=== PATIENT | female | born 1940 | race Caucasian/White ===

== ENCOUNTER 2024-06-22 05:36 | Emergency (ER) | payer MEDICARE, SELFPAY ==
[2024-06-22] VITALS (22 sets, daily range): BP systolic 110–178; BP diastolic 58–102; PULSE 62–93; RESP 10–23; TEMP 36.7; O2SAT 94–100
--- NOTE | ~2024-06-22 | XR_ITS ---
Portable chest x-ray Comparison: None Clinical History: Chest pain Findings: Lungs are clear, without focal consolidation or pleural effusion. Cardiomediastinal silho uette is stable. There is mild dextroscoliosis of the thoracic spine.. Impression: Clear lungs. Reviewed, dictated and finalized at [facility]. 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
--- NOTE | 2024-06-22 05:40 | ECG_ITS ---
Test Date: 2024-06-22 05:41:26 Measurements Intervals [place] Rate: 74 P: 54 MS: 233 QRS: -59 QRSD: 154 T: 87 QT: 425 QTc: 474 Interpretive Statements SINUS RHYTHM WITH FIRST DEGREE AV BLOCK WITH OCCASIONAL VENTRICULAR PREMATURE COMPLEXES LEFT AXIS DEVIATION LEFT BUNDLE BRANCH BLOCK BASELINE ARTIFACT- I, II, III, AVR, AVL, AVF, V2, V6 ABNORMAL ECG No previous ECG available for comparison Electronically Signed On 06-22-2024 07:04:59 DREDGE OPERATOR by Farhan Rich D.O.
[2024-06-22] MEDS: NITROGLYCERIN SL 0.4 MG TABLET SUBLINGUAL (05:46)
[2024-06-22] MEDS: MAG HYDROX/AL HYDROX/SIMETH 30 ML UDC PO (06:08)
[2024-06-22 06:15] LABS: Fractional Inspired Oxygen 21 %; HCO3 VBG 29.8 mEq/l (24.0-30.0); PCO2 VBG 53.9 mmHg (42.0-48.0); pH VBG 7.361 (7.300-7.400)
[2024-06-22 06:17] LABS: Device ROOM AIR; PO2 VBG < 27.0 mmHg (35.0-45.0)
[2024-06-22 06:18] LABS: Basophils Percent Auto 0.2 % (0.2-1.2); Eosinophils Absolute Auto 0.1 K/mm3 (0-0.3); Eosinophils Percent Auto 0.6 % (0-4.4); Hematocrit 44.4 % (37.0-47.0); Hemoglobin 14.8 g/dL (12.0-15.0); Immature Granulocyte Absolute 0.04 K/mm3 (0.00-0.031); Immature Granulocyte Percent A 0.4 % (0-0.5); Lymphocytes Absolute Auto 1.34 K/mm3 (0.9-3.2); Lymphocytes Percent Auto 12.3 % (18.3-44.2); Mean Corpuscular HGB Conc 33.3 g/dl (32-36); Mean Corpuscular Volume 96.1 fl (80-100); Mean Platelet Volume 9.9 fl (7.4-10.4); Monocytes Absolute Auto 0.8 K/mm3 (0.1-0.6); Monocytes Percent Auto 7.4 % (2.6-8.5); Neutrophils Absolute Auto 8.6 K/mm3 (1.3-6.7); Neutrophils Percent Auto 79.1 % (45.5-73.1); Platelet Count Result 235 k/mm3 (150-375); Red Blood Count 4.62 M/mm3 (4.2-5.4); Red Cell Distribution Width 13.1 % (11.5-14.5); White Blood Count 10.9 K/mm3 (4.5-10.0)
[2024-06-22 06:26] LABS: Alanine Aminotransferase 22 U/L (6-35); Albumin Level 4.7 g/dL (3.5-5.1); Alkaline Phosphatase 79 U/L (38-126); Anion Gap 10 mmol/L (4-12); Aspartate Amino Transferase 31 U/L (14-36); Bilirubin,Total 0.8 mg/dL (0.2-1.3); Blood Urea Nitrogen 25 mg/dL (7-17); Carbon Dioxide 30 mmol/L (22-30); Chloride 92 mmol/L (98-107); Estimated CRCL calculation 37 ml/min; Estimated Glomerular Filt Rate 57; Glucose 131 mg/dL (65-110); Lipase 160 U/L (23-300); Potassium 3.9 mmol/L (3.4-5.0); Sodium 132 mmol/L (137-145)
[2024-06-22 06:32] LABS: INR 0.9; Prothrombin Time 12.5 Seconds (11.1-14.7)
[2024-06-22 06:33] LABS: Partial Thromboplastin Time 26.5 Seconds (22.3-36.8)
[2024-06-22 06:37] LABS: Troponin I < 0.012 ng/mL (0.000-0.034)
[2024-06-22 06:38] LABS: NT Pro B Type Natriuretic Pept 375 pg/mL (19.9-100)
--- NOTE | 2024-06-22 06:40 | ED.CHESTPAIN ---
HPI - Chest Pain General Chief Complaint: Chest Pain <Ozzie Rockwell MD - Last Filed: 06/22/24 07:00> Stated Complaint: STEMI <Ozzie Rockwell MD - Last Filed: 06/22/24 07:00> Time Seen by Provider: 06/22/24 05:39 <Ozzie Rockwell MD - Last Filed: 06/22/24 07:00> History of Present Illness HPI narrative: This is an 83-year-old female presenting for chest pain. She has activated by EMS as a STEMI in the field. Patient states that at 3:00 a.m. she developed a pain in the lower chest/epigastric area. It is nonradiating, moderate intensity and constant. She has never had pain like this before there are no exacerbating alleviating factors. Is not associated with exertion, diaphoresis or vomiting. No history of [place]. no history of GERD. Patient has history of asthma but does not relate this chest pain to her asthma. <Ozzie Rockwell MD - Last Filed: 06/22/24 07:00> Related Data Allergies/Adverse Reactions: Allergies Allergy/AdvReac Type Severity Reaction Status Date / Time Cephalosporins Allergy Hives Verified 06/22/24 05:48 Penicillins Allergy Hives Verified 06/22/24 05:48 strawberry Allergy Hives Verified 06/22/24 05:48 <Ozzie Rockwell MD - Last Filed: 06/22/24 07:00> [facility] Past Medical History Medical History: Medical History Asthma HTN (hypertension) <Ozzie Rockwell MD - Last Filed: 06/22/24 07:00> Exam Narrative: APPEARANCE: No apparent distress. Head: atraumatic. EYES: EOMI, NOSE: Atraumatic NECK: Trachea midline RESPIRATORY: No increased rate of breathing, decreased lung sounds but clear CARDIOVASCULAR: RRR, no peripheral edema, pulses in all 4 extremities ABDOMINAL: Non-distended soft nontender no guarding rebound MUSCULOSKELETAl: No obvious deformities NEURO: Alert. Moving 4/4 extremities SKIN:: Warm, dry. Normal color PSYCHIATRIC: Normal affect <Ozzie Rockwell MD - Last Filed: 06/22/24 07:00> Course Course Emergency Course: 0956: Patient resting comfortably. No chest pain. EKG with left bundle x2. COVID screen negative. Troponin negative x2. X-ray unremarkable. Appropriate for discharge home. <Brian Roth MD - Last Filed: 06/22/24 10:50> Vital Signs Vital signs: Vital Signs Temperature 98.1 F 06/22/24 05:33 Pulse Rate 79 06/22/24 05:33 Respiratory Rate 17 06/22/24 05:33 Pulse Oximetry 99 06/22/24 05:33 Oxygen Delivery Room Air 06/22/24 05:33 Temperature 98.0 F 06/22/24 06:46 Pulse Rate 67 06/22/24 08:45 Respiratory Rate 18 06/22/24 08:45 Blood Pressure 122/64 06/22/24 08:31 Pulse Oximetry 99 06/22/24 08:45 Oxygen Delivery Room Air 06/22/24 05:40 <Ozzie Rockwell MD - Last Filed: 06/22/24 07:00> Vital Signs Temperature 98.1 F 06/22/24 05:33 Pulse Rate 79 06/22/24 05:33 Respiratory Rate 17 06/22/24 05:33 Pulse Oximetry 99 06/22/24 05:33 Oxygen Delivery Room Air 06/22/24 05:33 Temperature 98.0 F 06/22/24 06:46 Pulse Rate 67 06/22/24 08:45 Respiratory Rate 18 06/22/24 08:45 Blood Pressure 122/64 06/22/24 08:31 Pulse Oximetry 99 06/22/24 08:45 Oxygen Delivery Room Air 06/22/24 05:40 <Brian Roth MD - Last Filed: 06/22/24 10:50> MDM - Chest Pain MDM Narrative Medical decision making narrative: -Course: 83-year-old female presenting as a STEMI activation from the field. EKG showed left bundle-branch block but no STEMI criteria. Chest pain workup has been ordered. Patient received nitro in the field without any relief. She received Maalox in the ED and symptoms improved. She is currently pain-free. Patient signed out to the oncoming physician pending completion of her workup. <Ozzie Rockwell MD - Last Filed: 06/22/24 07:00> Lab Data Result diagrams: 06/22/24 06:06 06/22/24 06:06 <Ozzie Rockwell MD - Last Filed: 06/22/24 07:00> Labs: Lab Results 06/22/24 06/22/24 06/22/24 Range/Units 06:06 06:06 08:33 WBC 10.9 H (4.5-10.0) K/mm3 RBC 4.62 (4.2-5.4) M/mm3 Hgb 14.8 (12.0-15.0) g/dL Hct 44.4 (37.0-47.0) % MCV 96.1 (80-100) fl MCH 32.0 (26-34) pg MCHC 33.3 (32-36) g/dl RDW 13.1 (11.5-14.5) % Plt Count 235 (150-375) k/mm3 MPV 9.9 (7.4-10.4) fl Immature Gran % (Auto) 0.4 (0-0.5) % Neut % (Auto) 79.1 H (45.5-73.1) % Lymph % (Auto) 12.3 L (18.3-44.2) % [place] % (Auto) 7.4 (2.6-8.5) % Eos % (Auto) 0.6 (0-4.4) % Baso % (Auto) 0.2 (0.2-1.2) % Lymph # (Auto) 1.34 (0.9-3.2) K/mm3 [place] # (Auto) 0.8 H (0.1-0.6) K/mm3 Eos # (Auto) 0.1 (0-0.3) K/mm3 Baso # (Auto) 0.0 (0.0-0.1) K/mm3 Abs Immat Gran (auto) 0.04 H (0.00-0.031) K/mm3 Absolute Neuts (auto) 8.6 H (1.3-6.7) K/mm3 Absolute Nucleated RBC 0.000 (0.0-0.012) K/mm3 Nucleated RBC % 0.0 (0.0-0.2) % PT 12.5 (11.1-14.7) Seconds INR 0.9 APTT 26.5 (22.3-36.8) Seconds D-Dimer 0.38 Cancelled (<0.48) ug/mL Sodium 132 L (137-145) mmol/L Potassium 3.9 (3.4-5.0) mmol/L Chloride 92 L (98-107) mmol/L Carbon Dioxide 30 (22-30) mmol/L Anion Gap 10 (4-12) mmol/L BUN 25 H (7-17) mg/dL Creatinine 0.93 (0.7-1.0) mg/dL Estim Creat Clear Calc 37 ml/min Estimated GFR 57 L (59 - ) Glucose 131 H (65-110) mg/dL Calcium 10.0 (8.4-10.2) mg/dL Total Bilirubin 0.8 (0.2-1.3) mg/dL AST 31 (14-36) U/L ALT 22 (6-35) U/L Alkaline Phosphatase 79 (38-126) U/L Troponin I < 0.012 < 0.012 (0.000-0.034) ng/mL NT-Pro-B Natriuret Pep 375 H (19.9-100) pg/mL Total Protein 8.0 (6.3-8.2) g/dL Albumin 4.7 (3.5-5.1) g/dL Lipase 160 (23-300) U/L Influenza A (RT-PCR) Negative (Negative) Influenza B (RT-PCR) Negative (Negative) RSV (RT-PCR) Negative (Negative) SARS-CoV-2 RNA (RT-PCR) Negative (Negative) <Ozzie Rockwell MD - Last Filed: 06/22/24 07:00> Lab Results 06/22/24 06/22/24 06/22/24 Range/Units 06:06 06:06 08:33 WBC 10.9 H (4.5-10.0) K/mm3 RBC 4.62 (4.2-5.4) M/mm3 Hgb 14.8 (12.0-15.0) g/dL Hct 44.4 (37.0-47.0) % MCV 96.1 (80-100) fl MCH 32.0 (26-34) pg MCHC 33.3 (32-36) g/dl RDW 13.1 (11.5-14.5) % Plt Count 235 (150-375) k/mm3 MPV 9.9 (7.4-10.4) fl Immature Gran % (Auto) 0.4 (0-0.5) % Neut % (Auto) 79.1 H (45.5-73.1) % Lymph % (Auto) 12.3 L (18.3-44.2) % [place] % (Auto) 7.4 (2.6-8.5) % Eos % (Auto) 0.6 (0-4.4) % Baso % (Auto) 0.2 (0.2-1.2) % Lymph # (Auto) 1.34 (0.9-3.2) K/mm3 [place] # (Auto) 0.8 H (0.1-0.6) K/mm3 Eos # (Auto) 0.1 (0-0.3) K/mm3 Baso # (Auto) 0.0 (0.0-0.1) K/mm3 Abs Immat Gran (auto) 0.04 H (0.00-0.031) K/mm3 Absolute Neuts (auto) 8.6 H (1.3-6.7) K/mm3 Absolute Nucleated RBC 0.000 (0.0-0.012) K/mm3 Nucleated RBC % 0.0 (0.0-0.2) % PT 12.5 (11.1-14.7) Seconds INR 0.9 APTT 26.5 (22.3-36.8) Seconds D-Dimer 0.38 Cancelled (<0.48) ug/mL Sodium 132 L (137-145) mmol/L Potassium 3.9 (3.4-5.0) mmol/L Chloride 92 L (98-107) mmol/L Carbon Dioxide 30 (22-30) mmol/L Anion Gap 10 (4-12) mmol/L BUN 25 H (7-17) mg/dL Creatinine 0.93 (0.7-1.0) mg/dL Estim Creat Clear Calc 37 ml/min Estimated GFR 57 L (59 - ) Glucose 131 H (65-110) mg/dL Calcium 10.0 (8.4-10.2) mg/dL Total Bilirubin 0.8 (0.2-1.3) mg/dL AST 31 (14-36) U/L ALT 22 (6-35) U/L Alkaline Phosphatase 79 (38-126) U/L Troponin I < 0.012 < 0.012 (0.000-0.034) ng/mL NT-Pro-B Natriuret Pep 375 H (19.9-100) pg/mL Total Protein 8.0 (6.3-8.2) g/dL Albumin 4.7 (3.5-5.1) g/dL Lipase 160 (23-300) U/L Influenza A (RT-PCR) Negative (Negative) Influenza B (RT-PCR) Negative (Negative) RSV (RT-PCR) Negative (Negative) SARS-CoV-2 RNA (RT-PCR) Negative (Negative) <Brian Roth MD - Last Filed: 06/22/24 10:50> ABG Data ABG results: 06/22/24 06:06 VBG pH 7.361 VBG pCO2 53.9 H VBG pO2 < 27.0 L VBG HCO3 29.8 O2 Delivery Device Room air O2 Liters/Min Not Reportable FiO2 21 <Ozzie Rockwell MD - Last Filed: 06/22/24 07:00> 06/22/24 06:06 VBG pH 7.361 VBG pCO2 53.9 H VBG pO2 < 27.0 L VBG HCO3 29.8 O2 Delivery Device Room air O2 Liters/Min Not Reportable FiO2 21 <Brian Roth MD - Last Filed: 06/22/24 10:50> Imaging Data Radiologist's impression: ITS Impressions Chest X-Ray 06/22/24 06:24 Impression: Clear lungs. <Brian Roth MD - Last Filed: 06/22/24 10:50> ECG Data EKG #1: ECG completion date: 06/22/24 <Brian Roth MD - Last Filed: 06/22/24 10:50> ECG completion time: 09:56 <Brian Roth MD - Last Filed: 06/22/24 10:50> EKG Interpretation: normal rate (68), sinus rhythm, widened QRS, LBBB, normal QT and left axis <Brian Roth MD - Last Filed: 06/22/24 10:50> Discharge Plan Discharge Clinical Impression: Atypical chest pain <Ozzie Rockwell MD - Last Filed: 06/22/24 07:00> Patient Disposition: Home, Self-Care <Ozzie Rockwell MD - Last Filed: 06/22/24 07:00> Condition: Stable <Ozzie Rockwell MD - Last Filed: 06/22/24 07:00> Instructions: Chest Pain (ED) <Ozzie Rockwell MD - Last Filed: 06/22/24 07:00> Additional Instructions: Please return to the emergency department if you develop severe and persistent chest pain, difficulty breathing, dizziness, leg swelling or if you are coughing up blood as these can be signs of a medical emergency. Please call your doctor for a follow up appointment to determine the need for further testing. <Ozzie Rockwell MD - Last Filed: 06/22/24 07:00> Patient Language: Monegasque <Ozzie Rockwell MD - Last Filed: 06/22/24 07:00> Follow-up/Referrals: Reji,Luiz Baez MD [Non-Staff] - <Ozzie Rockwell MD - Last Filed: 06/22/24 07:00>
[2024-06-22 06:52] LABS: Influenza A QL RT-PCR Negative (Negative); Influenza B QL RT-PCR Negative (Negative); RSV RNA, RT-PCR Negative (Negative); SARS-CoV-2 RNA PCR Negative (Negative)
--- NOTE | 2024-06-22 08:19 | PC.NURSE ---
Pt resting denies any c/o chest/epigastric pain at this time. Resp reg, satellite project site monitor displays first degree heart block with BBB.
[2024-06-22 08:35] LABS: D Dimer 0.38 ug/mL (<0.48)
--- NOTE | 2024-06-22 08:39 | ECG_ITS ---
Test Date: 2024-06-22 08:43:45 Measurements Intervals [place] Rate: 68 P: 30 [place]: 238 QRS: -55 QRSD: 143 T: 71 QT: 432 QTc: 461 Interpretive Statements SINUS RHYTHM WITH FIRST DEGREE AV BLOCK LEFT AXIS DEVIATION LEFT BUNDLE BRANCH BLOCK ABNORMAL ECG Compared to ECG 06/22/2024 05:41:26 NO SIGNIFICANT CHANGE Electronically Signed On 06-22-2024 09:35:50 ACCOUNTS PAYABLES CLERK by Farhan Rich D.O.
[2024-06-22 09:01] LABS: Troponin I < 0.012 ng/mL (0.000-0.034)
--- OUTSIDE RECORDS SUMMARY | 2024-06-22 11:06 | XMS_ITS | Referral Summary ---
Author Organization [facility] Address [address] [facility] [place] [address] Care Team Providers Care Sweat Band Sewer Name Role Phone Elieser Patel MD Primary Care Provider Encounters Date Type Department Care Team Description 06/16/2024 Telephone [facility] Cardiology [facility] 8th [place] [address] [place] [address] Karmen Stovall MD 06/12/2024 Telephone [facility] [id number] [place] [address] Elieser Patel MD Test Results 06/12/2024 Orders Only [facility] [id number] [place] [address] Elieser Patel MD 06/10/2024 1:30 PM CLIENT ARCHITECT Office Visit [facility] [address] [place] [address] Elieser Patel MD Dizzy spells (Primary Dx); Hypertension, essential; Neck pain; Vitamin D deficiency; Hyperlipidemia, unspecified hyperlipidemia type; Frequent UTI 04/08/2024 Telephone [facility] Neurology [address] [place] [phone] Edgar Monroy MD 04/06/2024 Telephone [facility] Cardiology [address] [facility] 8th [place] [address] [place] [id number] Karmen Stovall MD from Last 3 Months Allergies Active Allergy Reactions Criticality Noted Date Comments Cephalosporins Hives Medium 01/21/2009 Cefadroxil Hives Medium 02/05/2012 Penicillins Hives Medium 01/21/2009 Candler Hives Medium 09/06/2023 Medications calcium carbonate-vitamin D3 1,500 mg (600mg elemental) -800 unit per tablet daily Active glucosamine-chond roitin (glucosamine-odalys droit-vit C-Mn) 500-400 mg capsule daily. Active ipratropium-albut nicholas (DUO-NEB) 0.5-2.5 mg/3 mL nebulizer solutionIndicatio ns:Chronic Obstructive Pulmonary Disease with Bronchospasms PRN 11 8 Active montelukast (SINGULAIR) 10 mg tablet Take 1 tablet (10 mg total) by mouth daily 3 8 Active SPIRIVA RESPIMAT 1.25 mcg/actuation mist INHALE 2 PUFFS BY MOUTH EVERY DAY 6 8 Active cholecalciferol (VITAMIN D-3) 1,000 unit tablet 2 tablets (2,000 Units total) daily Active albuterol HFA (PROVENTIL HFA,VENTOLIN HFA,PROAIR HFA) 90 mcg/actuation inhaler as needed. Active azelastine-flutic asone 137-50 mcg/spray spray,non-aerosol Dymista 137 mcg-50 mcg/spray nasal spray QD Active melatonin tablet 1 tablet (3 mg total) Active aspirin 81 mg enteric coated tablet Take 1 tablet (81 mg total) by mouth daily Active Wixela Inhub 100-50 mcg/dose diskus inhaler INHALE 2 PUFFS EVERY DAY BY INHALATION ROUTE FOR 90 DAYS. 3 Active metoprolol tartrate (LOPRESSOR) 50 mg immediate release tablet TAKE 1 & 1/2 TABLETS BY MOUTH TWICE A DAY 270 tablet 3 4 Active losartan (COZAAR) 50 mg tablet TAKE 1 TABLET BY MOUTH EVERY DAY 90 tablet 2 4 Active clindamycin (CLEOCIN) 150 mg capsule Take 1 capsule (150 mg total) by mouth every 6 (six) hours 4 Active guaiFENesin ER (Mucinex) 600 mg 12 hr tablet Take 1 tablet every 12 hours by oral route. 4 Active Spiriva Respimat 2.5 mcg/actuation inhaler INHALE 2 PUFFS INTO THE LUNGS EVERY DAY 4 Active hydroCHLOROthiazi de (HYDRODIURIL) 25 mg tablet TAKE 1 TABLET BY MOUTH EVERY DAY 90 tablet 3 4 Active Active Problems Problem Noted Date Diagnosed Date Neck pain 06/10/2024 Assessment & Plan (06/10/2024 1:48 PM CLIENT ARCHITECT): PT. AV block, 1st degree 09/06/2023 Near syncope 09/06/2023 Dizzy spells 08/08/2023 Assessment & Plan (06/10/2024 1:48 PM CLIENT ARCHITECT): Neurologic and cardiologic workups unremarkable. She feels well. Has follow up with Dr. Wilman davila. Assessment & Plan (01/09/2024 1:01 PM CDT): Unclear etiology. Cardiac workup has thus far been unremarkable. Will purse neurologic work[facility] and neurology referral. Urinary incontinence 06/28/2022 Assessment & Plan (01/09/2024 1:01 PM CDT): Refer to urogynecology (used to see Dr. Mckeon). Assessment & Plan (03/07/2023 12:41 PM CDT): Seeing urogynecology. Doing PT. No UTI symptoms today. Assessment & Plan (10/31/2022 11:47 AM CDT): Sees Dr. Mckeon. Hyponatremia 02/13/2022 Assessment & Plan (03/07/2023 12:41 PM CDT): Probably combination of excess free water intake and SIADH from known lung disease (bronchiectasis). Check urine osmolality. Limit free water consumption and replace with Crystal Light or Gatorade Zero. Assessment & Plan (02/13/2022 12:53 PM CDT): BMP today. Medicare annual wellness visit, subsequent 10/11 Assessment & Plan (10/11/2021 9:22 PM CDT): Continue healthy lifestyle. Cancer screening UTD. Recommended Prevnar and 4th COVID shot. APC (atrial premature contractions) 10/11/2021 Assessment & Plan (08/08/2023 12:33 PM CDT): Suspect that this is the etiology of her periodic spells. TIA considered less likely. Refer to cardiology for further evaluation/management. Continue metoprolol. We will also obtain carotid dopplers to rule out cerebrovascular disease. We reviewed her stress echo from 2021 which was normal. Assessment & Plan (03/07/2023 12:40 PM CDT): Well-controlled on metoprolol 75 mg BID. Assessment & Plan (10/31/2022 11:47 AM CDT): Doing well on metoprolol 75 mg BID. Assessment & Plan (06/28/2022 12:41 PM CLIENT ARCHITECT): Increase metoprolol to 75 mg BID. Had negative stress test within last year, so low likelihood of having coronary ischemia. Assessment & Plan (02/13/2022 12:12 PM CDT): Recommend increasing metoprolol to 75 mg BID. Assessment & Plan (10/11/2021 9:22 PM CDT): Holter. Frequent falls 10/11/2021 Assessment & Plan (10/11/2021 9:22 PM CDT): PT referral. Sebaceous cyst 06/13/2021 Assessment & Plan (06/13/2021 12:24 PM CLIENT ARCHITECT): She will get an I&D at urgent care. Hyperlipidemia 06/30/2020 Assessment & Plan (06/28/2022 12:39 PM CLIENT ARCHITECT): LDL at goal without need for statin. Assessment & Plan (02/13/2022 12:10 PM CDT): At goal on current therapy. Assessment & Plan (10/11/2021 9:20 PM CDT): LDL in good range without need for statin. Assessment & Plan (06/13/2021 12:23 PM CLIENT ARCHITECT): LDL at goal without need for statin at this time. Assessment & Plan (02/02/2021 5:32 PM CDT): At goal on current therapy. ASCVD (arteriosclerotic cardiovascular disease) 06/30/2020 Osteoarthritis 06/30/2020 Frequent UTI 06/30/2020 Assessment & Plan (06/10/2024 2:33 PM CLIENT ARCHITECT): Continue pelvic floor PT. Allergic rhinitis 11/26/2017 Moderate persistent asthma 11/26/2017 Assessment & Plan (02/02/2021 5:32 PM CDT): Continue current therapy. F/u with allergy. Disorder of lung 08/22/2015 Lung mass 08/08/2015 Overweight with body mass index (BMI) 25.0-29.9 08/01/2015 Palpitations 08/01/2015 Shortness of breath 01/31/2015 Assessment & Plan (06/13/2021 12:24 PM CLIENT ARCHITECT): Will proceed with stress echo. Fibroids 07/16/2014 Pain of foot 08/05/2013 Diastolic heart failure 07/16/2013 Hypertension, essential 03/24/2013 Assessment & Plan (06/10/2024 2:33 PM CLIENT ARCHITECT): At goal on current therapy. Assessment & Plan (01/09/2024 1:01 PM CDT): BP in reasonable range on current regimen. Assessment & Plan (08/08/2023 12:33 PM CDT): At goal on current therapy. Assessment & Plan (03/07/2023 12:40 PM CDT): At goal on current therapy. Assessment & Plan (10/31/2022 11:45 AM CDT): At goal on current therapy. Assessment & Plan (06/28/2022 12:41 PM CLIENT ARCHITECT): At goal on current therapy. Assessment & Plan (02/13/2022 12:10 PM CDT): At goal on current therapy. Assessment & Plan (10/11/2021 9:20 PM CDT): At goal on current therapy. Assessment & Plan (02/02/2021 5:32 PM CDT): At goal on current therapy. Obesity 03/24/2013 Edema 12/05/2011 Ventricular premature beats 12/05/2011 Assessment & Plan (02/02/2021 5:32 PM CDT): Seen on EKG today. Not symptomatic. Continue BB. 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 Will proceed with RUE arterial duplex; may need MRA depending on findings. Type 1 diabetes mellitus wit hout complication ([facility]/HCC) 06/30/2020 02/02/2021 Immunizations Immunization Administration Dates Next Due Moderna SARS-CoV-2 Monovalent Vaccination (12+ Y RS) 05/08/2020 Social History Tobacco Use Types Packs/Day Years Used Date Smoking Tobacco: Former Cigarettes Q uit: 1972 Smokeless Tobacco: Never Tobacco Cessation:Counseling Given: Not Answered Comments:at age 31 Alcohol Use Standard Drinks/Week Comments Yes 0 (1 standard drink = 0.6 oz pur e alcohol) PHQ-2 Answer Date Recorded PHQ-2 Total Score (If total score is 3 or more points, staff should administer the PHQ-9) 0 10/11/2021 Exercise Vital Sign Answer Date Recorde d Days of Exercise per Week 4 days 2018 Minutes of Exercise per Session 40 min 12/02/2018 Comments No Sex and Gender Information Value Date Recorded Sex Assigned at Not on file Legal Sex Female 9:20 PM CLIENT ARCHITECT Gender Identity Not on file Sexual Orientation Not on file Last Filed Vital Signs Vital Sign Reading Time Taken Comments Blood Pressure 153/84 06/10/2024 1:18 PM CLIENT ARCHITECT Pulse 55 06/10/2024 1:18 PM CLIENT ARCHITECT Temperature 36.8 C (98.2 F) 11/03/2019 10:41 AM CDT Respiratory Rate 14 11/03/2019 10:41 AM CDT Oxygen Saturation 95% 02/17/2024 1:13 PM CDT Inhaled Oxygen Concentration - - Weight 59.1 kg (130 lb 3.2 oz) 06/10/2024 1:18 P M CLIENT ARCHITECT Height 157.5 cm (5' 2 ) 06/10/2024 1:18 PM CLIENT ARCHITECT Body Mass Index 23.81 06/10/2024 1:18 PM CLIENT ARCHITECT Plan of Treatment Not on file Procedures Procedure Name Priority Date/Time Associated Diagnosis Comments SCAN - LABS 06/12/2024 10:30 AM CLIENT ARCHITECT SPECIMEN STATUS REPORT Routine 06/11/2024 1:00 PM CLIENT ARCHITECT LIPID PANEL Routine 06/11/2024 1:00 PM CLIENT ARCHITECT Hyperlipidemia, unspecified hyperlipidemia type VITAMIN D 25 HYDROXY Routine 06/11/2024 1:00 PM CLIENT ARCHITECT Vitamin D deficiency THYROID FUNCTION CASCADE Routine 06/11/2024 1:00 PM CLIENT ARCHITECT Hypertension, essential CBC WITH AUTO DIFFERENTIAL Routine 06/11/2024 1:00 PM CLIENT ARCHITECT Hypertension, essential COMPREHENSIVE METABOLIC PANEL Routine 06/11/2024 1:00 PM CLIENT ARCHITECT Hypertension, essential SCREENING MAMMOGRAM BILATERAL W HARINDER Schedule Routine, Read Routine (OP Routine) 09/12/2023 12:38 PM CDT Screening mammogram, encounter for from Last 3 Months or Most Recently Relevant to Health Maintenance Results * SCAN - LABS (06/12/2024 10:30 AM CLIENT ARCHITECT) Elieser Patel MD Final R esult * Specimen Status Report (06/11/2024 1:00 PM CLIENT ARCHITECT) Specimen Status Report Comment [facility] - 01 Comment: Unable To Void Unable To Void Patient unable to void. Urine to be collected at a later date. 06/11/2024 1:00 PM CLIENT ARCHITECT 06/11/2024 Narrative [facility] - 06/12/2024 11:10 AM CLIENT ARCHITECT Performed at: [address] [place] [id number] Residential Team Leader: Stevenson Gonzales PhD, Phone: [phone] Elieser Patel MD LAB BLOOD ORDERABLES Fi nal Result [facility] - 01 * Thyroid Function Todd (06/11/2024 1:00 PM CLIENT ARCHITECT) TSH 3.060 0.450 - 4.500 uIU/mL [facility] - 01 Comment: No apparent thyroid disorder. Additional testing not indicated. In rare instances, Secondary Hypothyroidism as well as Subclinical Hypothyroidism have been reported in some patients with normal TSH values. Blood 06/11/2024 1:00 PM CLIENT ARCHITECT 06/11/2024 Narrative [facility] - 06/12/2024 11:10 AM CLIENT ARCHITECT Performed at: [address] [place] [id number] Residential Team Leader: Stevenson Gonzales PhD, Phone: [phone] Elieser Patel MD LAB BLOOD ORDERABLES Fi nal Result [facility] - 01 * CBC with auto differential (06/11/2024 1:00 PM CLIENT ARCHITECT) [facility] WBC 5.0 3.4 - 10.8 x10E3/uL [facility] - 01 RBC 4.47 3.77 - 5.28 x10E6/uL [facility] - 01 Hgb 14.2 11.1 - 15.9 g/dL [facility] - 01 Hct 42.5 34.0 - 46.6 % [facility] - 01 MCV 95 79 - 97 fL [facility] - 01 MCH 31.8 26.6 - 33.0 pg [facility] - 01 MCHC 33.4 31.5 - 35.7 g/dL [facility] - 01 Rdw 12.4 11.7 - 15.4 % [facility] - 01 Platelets 220 150 - 450 x10E3/uL [facility] - 01 Neutrophils pct 62 Not Estab. % [facility] - 01 Lymphs pct 27 Not Estab. % [facility] - 01 Monocytes pct 8 Not Estab. % [facility] - 01 Eosinophils pct 2 Not Estab. % [facility] - 01 Basophil pct 1 Not Estab. % [facility] - 01 Neutrophil abs 3.1 1.4 - 7.0 x10E3/uL [facility] - 01 Lymphs (Absolute) 1.3 0.7 - 3.1 x10E3/uL [facility] - 01 Monocyte abs 0.4 0.1 - 0.9 x10E3/uL [facility] - 01 Eosinophils, abs 0.1 0.0 - 0.4 x10E3/uL [facility] - 01 Basophils, abs 0.0 0.0 - 0.2 x10E3/uL [facility] - 01 Immature Granulocytes 0 Not Estab. % [facility] - 01 Immature Grans (Abs) 0.0 0.0 - 0.1 x10E3/uL [facility] - 01 Blood 06/11/2024 1:00 PM CLIENT ARCHITECT 06/11/2024 Narrative [facility] - 06/12/2024 11:10 AM CLIENT ARCHITECT Performed at: [address], [place] [id number] Residential Team Leader: Stevenson Gonzales PhD, Phone: [phone] Specimen Comment: A courtesy copy of this report has been sent to [phone] Elieser Patel MD LAB BLOOD ORDERABLES Fi nal Result Performing Organization Address [facility] Co de Phone Number [facility] - * Vitamin D 25 hydroxy (06/11/2024 1:00 PM CLIENT ARCHITECT) Vitamin D, 25-Hydroxy 84.3 30.0 - 100.0 ng/mL [facility] - 01 Comment: Vitamin D deficiency has been defined by the Mack of Medicine and an Endocrine Society practice guideline as a level of serum 25-OH vitamin D less than 20 ng/mL (1,2). The Endocrine Society went on to further define vitamin D insufficiency as a level between 21 and 29 ng/mL (2). 1. IOM ([place]ack of Medicine). 2010. Dietary reference intakes for calcium and D. [place]: The National Academies Press. 2. Steffany MF, Alexis CHAVIS, Sanjay DRISCOLL, et al. Evaluation, treatment, and prevention of vitamin D deficiency: an Endocrine Society clinical practice guideline. JCEM. 2011 Nov; 96(7):1911-30. Blood 06/11/2024 1:00 PM CLIENT ARCHITECT 06/11/2024 Narrative [facility] - 06/12/2024 11:10 AM CLIENT ARCHITECT Performed at: - [facility] [id number] Residential Team Leader: Stevenson Gonzales PhD, Phone: [phone] Elieser Patel MD LAB BLOOD ORDERABLES Fi nal Result Performing Organization Address [facility] Co de Phone Number [facility] - 01 * (ABNORMAL) Lipid panel (06/11/2024 1:00 PM CLIENT ARCHITECT) Cholesterol 199 100 - 199 mg/dL [facility] - 01 Triglycerides 61 0 - 149 mg/dL [facility] - 01 HDL Cholesterol 83 >39 mg/dL [facility] - 01 VLDL 11 5 - 40 mg/dL [facility] - 01 LDL, calculated 105(H) 0 - 99 mg/dL [facility] - 01 Blood 06/11/2024 1:00 PM CLIENT ARCHITECT 06/11/2024 Narrative [facility] - 06/12/2024 11:10 AM CLIENT ARCHITECT Performed at: 01 - [address] [id number] Residential Team Leader: Stevenson Gonzales PhD, Phone: [phone] us Elieser Patel MD LAB BLOOD ORDERABLES Fi nal Result [facility] - 01 * (ABNORMAL) Comprehensive metabolic panel (06/11/2024 1:00 PM CLIENT ARCHITECT) [facility] Glucose 103(H) 70 - 99 mg/dL [facility] - 01 BUN 19 8 - 27 mg/dL [facility] - 01 Creatinine, Serum 0.89 0.57 - 1.00 mg/dL [facility] - 01 eGFR 64 >59 mL/min/1.7 3 [facility] - 01 BUN/creat ratio 21 12 - 28 [facility] - 01 Sodium 133(L) 134 - 144 mmol/L [facility] - 01 Potassium, sr 4.0 3.5 - 5.2 mmol/L [facility] - 01 Chloride 93(L) 96 - 106 mmol/L [facility] - 01 CO2 25 20 - 29 mmol/L [facility] - 01 Calcium 9.9 8.7 - 10.3 mg/dL [facility] - 01 Protein, sr 7.0 6.0 - 8.5 g/dL [facility] - 01 Albumin 4.5 3.7 - 4.7 g/dL [facility] - 01 Globulin, Total 2.5 1.5 - 4.5 g/dL [facility] - 01 Bilirubin, Total 0.5 0.0 - 1.2 mg/dL [facility] - 01 Alk phos 66 44 - 121 IU/L [facility] - 01 AST 23 0 - 40 IU/L [facility] - 01 ALT 15 0 - 32 IU/L [facility] - 01 Blood 06/11/2024 1:00 PM CLIENT ARCHITECT 06/11/2024 Narrative [facility] - 06/12/2024 11:10 AM CLIENT ARCHITECT Performed at: - [address] [id number] Residential Team Leader: Stevenson Gonzales PhD, Phone: [phone] Elieser Patel MD LAB BLOOD ORDERABLES Fi [facility]al [facility] - 01 * Screening Mammogram Bilateral W Harinder (09/12/2023 12:38 PM CDT) Anatomical Region Laterality Modality Breast Bilateral Mammography Narrative 09/13/2023 2:02 PM CDT Mammogram Technique: Bilateral Digital Breast Tomosynthesis, Bilateral C-view 2D Screening mammogram. Views obtained: bilateral craniocaudal and bilateral mediolateral oblique. Computer Aided Detection was performed. Mammogram Findings: The present examination has been compared to prior imaging studies performed at [facility] on 03/03/2020, 07/06/2021 and 08/21/2022. There are scattered areas of fibroglandular density. There is no suspicious abnormality in either breast. Impression: There is no mammographic evidence of malignancy. Annual screening mammography is recommended. OVERALL FINAL ASSESSMENT: BI-RADS CATEGORY 1: Negative. Procedure Note Stephanie Valentine MD - 09/13/2023 Mammogram Technique: Bilateral Digital Breast Tomosynthesis, Bilateral C-view 2D Screening mammogram. Views obtained: bilateral craniocaudal and bilateral mediolateral oblique. Computer Aided Detection was performed. Mammogram Findings: The present examination has been compared to prior imaging studies performed at [facility] on 03/03/2020, 07/06/2021 and 08/21/2022. There are scattered areas of fibroglandular density. There is no suspicious abnormality in either breast. Impression: There is no mammographic evidence of malignancy. Annual screening mammography is recommended. OVERALL FINAL ASSESSMENT: BI-RADS CATEGORY 1: Negative. us Self Screening Mammogram IMG MAMMO PROCEDURES Fi nal Result from Last 3 Months or Most Recently Relevant to Health Maintenance Insurance MEDICARE [facility] Address[address] [place] [id number] MEDICARE [facility] Address: [place] [address] MEDICARE [facility] Address: [facility] [address] [place] [address] Care Teams Sweat Band Sewer Relationship Specialty Start Date End Date Elieser Patel MD [address] [facility] [address] [place] [address] PCP - General Endocrinology Diabetes & Metabolism 02/02/21
--- OUTSIDE RECORDS SUMMARY | 2024-06-22 11:06 | XMS_ITS | Data Portability ---
Author Organization [place] [facility],, Nallely ely Address [address] [place] [address] Assessment No assessment recorded. Plan of Treatment Reminders Order Date Submit Date Provider Last Modified By Organization Details Last Modified Time Details Appointments LUCA Christy VISIT 2024 12:15P M Hudson urbina MD Not available Not available Not available Lab None record ed. Referral None record ed. Procedures None record ed. Surgeries None record ed. Imaging None record ed. Medication Orders Mucine x 600 mg tablet , extend ed releas e 2023 024 [facility]acy #[id number], [address], [place], [address], 11/21/2023 13:27:28 Zithro max Z-Terry 250 mg tablet 2023 024 [facility]acy #[id number], [address], [place], [address], 11/21/2023 13:18:03 predni sone 20 mg tablet 2023 024 [facility] #[id number], [address], [place], [address], 08/15/2023 13:34:45 Spiriv a Respim at 2.5 mcg/ac tuatio n soluti on for inhala tion 2022 023 emiliano [facility]/Pharmacy #[id number], [address], [place], [address], 02/21/2023 13:27:51 albute rol sulfat e HFA 90 mcg/ac tuatio n aeroso l inhale r 2022 023 emiliano [facility] #[id number], [address], [place], [address], 02/21/2023 13:27:51 Patient TargetsNo targets recorded. Patient Instructions Encounter Date Encounter Id Patient Instructions Last Modified By Organization Details Last Modified Time 08/15/2023 [id number] bronchitis: care instructions [email or web address] Not available 08/15/2023 13:34:42 spirometry testing* FREDY Not available 08/15/2023 14:44:36 Reason for Referral None Reported. Results Created Date Observation Date Name Description Value Unit Range Abnormal Flag Note LastModifiedBy Organization Detail LastModifiedTime 08/16/19 24 08/16/2023 cliff metry testi ng* fev1 Not Available [facility] [address], [place], [address], 08/15/2023 13:15:23 08/16/19 24 08/16/2023 cliff metry testi ng* fvc Not Available [facility] [address], [place], [address], 08/15/2023 13:15:23 08/16/19 24 08/16/2023 cliff metry testi ng* % reversibilit y Not Available [facility] [address], [place], [address], 08/15/2023 13:15:23 Result Notes None recorded. Problems Name Problem SNOMED Code Status Onset Date Resolution Date Notes Provider Name and Address Organization Details Recorded Time Severe chronic obstructive pulmonary disease 490711558 Active 2023 Hudson christy MD [address], [place], [address] , [facility] [place] [facility], 04/18/202 4 13:50:16 Allergic rhinitis 54333445 Active Not Available [facility] 3 10:10:16 Benign essential hypertension 4970890 Active Not Available [facility] 3 10:10:16 Problem Notes None recorded. Medical Equipment None Reported. Allergies Allergen ID Allergen Name Allergen Category Reaction Reaction Severity Criticality Documentation Date Start Date Code Code System Note Provider Name and Address Organization Details Recorded Time 98737 Product containin g penicilli n (product) medicatio n hives Not available Not available 2015 48026 8001 SNOMED Ellie whitaker [place] [facility], 6 11:28:23 80111 Duricef medicatio n hives Not available Not available 2015 23590 6 RxNorm Ellie whitaker [place] [facility], 6 11:28:23 72783 Product containin g cephalosp lilia (product) medicatio n hives Not available Not available 2015 79057 9009 SNOMED Ellie whitaker [place] [facility], 6 11:28:23 Medications Name Sig Start Date Stop Date Status Note LastModified by Organization Details LastModified Time losartan 50 mg tablet TAKE 1 TABLET BY MOUTH EVERY DAY active Not Available Not Available No t Available carvedilol 25 mg tablet 08/14 completed Not Available Not Available Not Available ipratropium 0.5 mg-albutero l 3 mg (2.5 mg base)/3 mL nebulizatio n soln Inhale 3 mL twice a day by nebulizat ion route for 30 days. active Not Available Not Available No t Available azithromyci n 250 mg tablet TAKE 2 TABLETS BY MOUTH TODAY, THEN TAKE 1 TABLET DAILY FOR 4 DAYS DIRECTED active Not Available Not Available No t Available ofloxacin 0.3 % eye drops INSTILL 1 DROP INTO THE LEFT EYE 4 TIMES DAILY FOR 7 DAYS AFTER SURGERY 08/14 completed Not Available Not Available Not Available phenazopyri dine 200 mg tablet TAKE 1 TABLET BY MOUTH THREE TIMES A DAY NEEDED FOR PAIN 08/14 completed Not Available Not Available Not Available prednisone 20 mg tablet TAKE 2 TABLETS BY MOUTH EVERY DAY DIRECTED FOR 5 DAYS active Not Available Not Available No t Available clindamycin HCl 150 mg capsule TAKE 1 CAPSULE BY MOUTH EVERY 6 HOURS active Not Available Not Available No t Available ciprofloxac in 250 mg tablet 03/11 completed Not Available Not Available Not Available ciprofloxac in 500 mg tablet TAKE 1 TABLET BY MOUTH TWICE A DAY FOR 7 DAYS 08/14 completed Not Available Not Available Not Available sulfamethox azole 800 mg-trimetho prim 160 mg tablet TAKE 1 TABLET BY MOUTH TWICE A DAY 08/14 completed Not Available Not Available Not Available prednisolon e acetate 1 % eye drops,suspe nsion INSTILL 1 DROP INTO THE RIGHT THREE TIMES PER DAY FOR 14 DAYS AFTER SURGERY 08/14 completed Not Available Not Available Not Available doxycycline monohydrate 100 mg capsule TAKE 1 PILL BY MOUTH TWICE DAILY FOR 10 DAYS. TAKE WITH FOOD. 08/14 completed Not Available Not Available Not Available neomycin-po lymyxin-dex ameth 3.5 mg/mL-10,00 0 unit/mL-0.1 % eye drops 11/20 completed Not Available Not Available Not Available lisinopril 10 mg tablet 08/14 completed Not Available Not Available Not Available losartan 25 mg tablet 08/14 completed Not Available Not Available Not Available metoprolol tartrate 50 mg tablet TAKE 1 & 1/2 TABLETS BY MOUTH TWICE A DAY active Not Available Not Available No t Available montelukast 10 mg tablet TAKE 1 TABLET BY MOUTH EVERY DAY active Not Available Not Available No t Available hydrochloro thiazide 25 mg tablet TAKE 1 TABLET BY MOUTH EVERY DAY active Not Available Not Available No t Available furosemide 20 mg tablet 08/14 completed Not Available Not Available Not Available clobetasol 0.05 % topical ointment active Not Available Not Available Not Available fluticasone 100 mcg-salmete rol 50 mcg/dose blistr powdr for inhalation TAKE 1 PUFF BY MOUTH TWICE A DAY *RINSE MOUTH AFTER USE* active Not Available Not Available No t Available estradiol 0.01% (0.1 mg/gram) vaginal cream USE 1/4 APPLICATO R NIGHTLY FOR 2 WEEKS THEN TWICE WEEKLY AFTER THAT active Not Available Not Available No t Available albuterol sulfate HFA 90 mcg/actuati on aerosol inhaler INHALE 2 PUFFS BY MOUTH EVERY 4 TO 6 HOURS NEEDED active Not Available Not Available No t Available ipratropium bromide 42 mcg (0.06 %) nasal spray [place] 2 sprays 3 times a day by intranasa l route. active Not Available Not Available No t Available losartan 100 mg tablet 08/14 completed Not Available Not Available Not Available neomycin 3.5 mg/g-polymy amelia B 10,000 unit/g-dexa meth 0.1 % eye oint APPLY A SMALL AMOUNT ON EYELID THREE TIMES A DAY DIRECTED 08/14 completed Not Available Not Available Not Available Mucinex 600 mg tablet, extended release Take 1 tablet every 12 hours by oral route. 2023 active Not Available Not Available Not Avai lable moxifloxaci n 0.5 % eye drops 08/14 completed Not Available Not Available Not Available Spiriva with HandiHaler 18 mcg and inhalation capsules 02/24 completed Not Available Not Available Not Available nitrofurant oin monohydrate /macrocryst als 100 mg capsule TAKE 1 CAPSULE BY MOUTH TWICE A DAY FOR 5 DAYS active Not Available Not Available No t Available melatonin 08/14 completed Not Available Not Available Not Available Symbicort 160 mcg-4.5 mcg/actuati on HFA aerosol inhaler inhale 2 puffs twice a day 08/16 completed Not Available Not Available Not Available PreviDent 5000 Dry Mouth 1.1 % dental paste 02/15 completed Not Available Not Available Not Available Durezol 0.05 % eye drops active Not Available Not Available Not Available Clarence Kapadia [facility] spacer 08/14 completed Not Available Not Available Not Available azelastine 137 mcg-flutica sone 50 mcg/spray nasal spray 1 spray in each nostril BID 2024 active Not Available Not Available Not Avai lable Ilevro 0.3 % eye drops,suspe nsion active Not Available Not Available Not Available Breo Ellipta 100 mcg-25 mcg/dose powder for inhalation 02/16 completed Not Available Not Available Not Available Spiriva Respimat 2.5 mcg/actuati on solution for inhalation INHALE 2 PUFFS INTO THE LUNGS EVERY DAY active Not Available Not Available No t Available Stiolto Respimat 2.5 mcg-2.5 mcg/actuati on solution for inhalation Inhale 2 puffs every day by inhalatio n route. 08/16 completed Not Available Not Available Not Available Spiriva Respimat 1.25 mcg/actuati on solution for inhalation INHALE 2 PUFFS BY MOUTH EVERY DAY 08/14 completed Not Available Not Available Not Available Shingrix (PF) 50 mcg/0.5 mL intramuscul ar suspension, kit 08/14 completed Not Available Not Available Not Available Fluzone High-Dose Quad (PF) 240 mcg/0.7 mL IM syringe TO BE ADMINISTE RED BY PHARMACIS T FOR IMMUNIZAT ION 08/14 completed Not Available Not Available Not Available Breztri Aerosphere 160 mcg-9mcg-4. 8mcg/actuat ion HFA aerosol inhaler Inhale 2 puffs twice a day by inhalatio n route. 02/15 completed Not Available Not Available Not Available Vitals Date Recorded Body height Body mass index (BMI) Body weight Heart rate Oxygen saturation Oxygen saturation in Arterial blood by Pulse oximetry Respiratory rate Body temperature Systolic blood pressure Diastolic blood pressure Provider Name and Address Organization Details Last Updated DateTime 3 152.4 cm 26 kg/m2 75139.7 9 g 71 /min 95 % 95 % 18 /min 97.1 [degF] 128 mm[Hg] 72 mm[Hg] genaro greer [place] [facility], 3 12:49:36 Date Recorded Body height Body mass index (BMI) Body weight Heart rate Oxygen saturation Oxygen saturation in Arterial blood by Pulse oximetry Respiratory rate Body temperature Systolic blood pressure Diastolic blood pressure Provider Name and Address Organization Details Last Updated DateTime 4 152.4 cm 26.2 kg/m2 86919.3 8 g 81 /min 98 % 98 % 18 /min 97 [degF] 130 mm[Hg] 78 mm[Hg] Chloe Mccormack [place] [facility], 4 12:56:28 Date Recorded Body height Body mass index (BMI) Body weight Heart rate Oxygen saturation Oxygen saturation in Arterial blood by Pulse oximetry Respiratory rate Body temperature Systolic blood pressure Diastolic blood pressure Provider Name and Address Organization Details Last Updated DateTime 4 152.4 cm 26.4 kg/m2 79388.9 7 g 65 /min 99 % 99 % 18 /min 97.1 [degF] 132 mm[Hg] 84 mm[Hg] genaro davidsono [place] [facility], 4 13:33:47 Date Recorded Body height Body mass index (BMI) Body weight Heart rate Oxygen saturation Oxygen saturation in Arterial blood by Pulse oximetry Respiratory rate Body temperature Systolic blood pressure Diastolic blood pressure Provider Name and Address Organization Details Last Updated DateTime 4 152.4 cm 25.8 kg/m2 08248.1 9 g 60 /min 98 % 98 % 18 /min 97 [degF] 126 mm[Hg] 78 mm[Hg] Chloe Mccormack [place] [facility], 4 13:09:49 Date Recorded Body height Body mass index (BMI) Body weight Oxygen saturation Oxygen saturation in Arterial blood by Pulse oximetry Heart rate Respiratory rate Systolic blood pressure Diastolic blood pressure Provider Name and Address Organization Details Last Updated DateTime 4 152.4 cm 25.2 kg/m2 40433.4 2 g 100 % 100 % 67 /min 18 /min 124 mm[Hg] 80 mm[Hg] Sudha Jerry [place] [facility], 4 13:23:34 Social History Question Answer Notes LastModified by Organizat ion Details LastModified Time Tobacco Smoking Status Former Smoker QUIT 45 YEARS AGO Chloe whitaker [place] [facility], 08/23/2022 12:57:13 What Is Your Level Of Alcohol Consumption? Occasional [email or web address] Information not available 2015 What Was The Date Of Your Most Recent Tobacco Screening? 03/12/2024 [email or web address] Information not available 03/12/2024 At What Age Did You Start Smoking Tobacco? 16 [email or web address] Information not available 2015 How Much Tobacco Do You Smoke? 1 PPD [email or web address] Information not available 2015 Do You Use Any Illicit Or Recreational Drugs? No Information not available 02/16/2021 Do You Or Have You Ever Used Any Other Forms Of Tobacco Or Nicotine? No Information not available 02/16/2021 Sex: Unknown Functional Status None recorded. Mental Status None recorded. Family History Relationship Description Onset Age of this Age Resolved Age Notes LastModified by Organization Details LastModified Time Mother Pulmonary emphysema 78 [email or web address] Not available 09:34:51 Father Myocardial infarction 52 [email or web address] Not available 09:34:51 Medical History Condition Response Coronary Artery Disease N Gout N Kidney Stones N Hyperthyroidism N Hypothyroidism N Stress N Depression N COPD N Anxiety Disorder N Arthritis N Cancer N Stroke N High Cholesterol N Liver Disease N Fibromyalgia N Kidney Disease N Diabetes N Tuberculosis N Diverticulitis N Asthma N Allergies N GERD/Reflux N Heart Disease N Pulmonary Embolism N Hypertension Y Osteoporosis N Gynecological HistoryNo gynecological history recorded. Obstetrics History GPAL:G 0 P 0 0 0 0 Immunizations Vaccine Type Date Status Note Provider Nam e and Address Organization Details Recorded Time Influenza, high-dose, trivalent, PF [address], [address], [place] [facility], 04/14/2023 15:29:07 Pneumococcal conjugate PCV [address], [place], [address], [place] [facility], 04/14/2023 15:29:07 Influenza, adjuvanted, trivalent, PF [address], [place], [address], [place] [facility], 04/14/2023 15:29:07 Influenza, split virus, quadrivalent, preservative [address], [place], [address], [place] [facility], 04/14/2023 15:29:07 COVID-19, mRNA, LNP-S, PF, 100 mcg/0.5mL dose or 50 mcg/0.25mL dose [address], [place], [address], [place] [facility], 04/14/2023 15:29:07 COVID-19, mRNA, LNP-S, PF, 100 mcg/0.5mL dose or 50 mcg/0.25mL dose completed [address], [place], [address], [place] [facility], 04/14/2023 15:29:07 Influenza, split virus, quadrivalent, preservative completed [address], [place], [address], [place] [facility], 04/14/2023 15:29:07 COVID-19, mRNA, LNP-S, PF, 100 mcg/0.5mL dose or 50 mcg/0.25mL dose completed [address], [place], [address], [place] [facility], 04/14/2023 15:29:07 Pneumococcal conjugate PCV20, polysaccharide [id number] conjugate, adjuvant, PF [address], [place], [address], [place] [facility], 04/14/2023 15:29:07 Influenza, split virus, quadrivalent, preservative completed [address], [place], [address], [place] [facility], 04/14/2023 15:29:07 Influenza, adjuvanted, trivalent, PF 020 cancelled patient objection Chester whitaker, [place] [facility], 02/25/2020 12:17:41 RSV, recombinant, protein subunit RSVpreF, adjuvant reconstituted, 0.5 mL, PF [address], [place], [address], [place] [facility], 04/14/2023 15:29:07 COVID-19, mRNA, LNP-S, PF, dajuan-sucrose, 30 mcg/0.3 mL 024 completed MD [address], [place], [address], [facility] [place] [facility], 03/12/2024 14:17:00 influenza, unspecified formulation 024 completed MD [address], [place], [address], [facility] [place] [facility], 03/12/2024 14:17:16 Past Encounters Encounter ID Performer Location Encounter Start Date Encounter Closed Date Diagnosis/Indication Diagnosis SNOMED-CT Code Diagnosis ICD10 Code Diagnosis Note [id number] Hudson christy MD OFFICE [address] [place] [id number] 2015 10:54:13 2015 13:29:42 Moderate persistent asthma 582353150 J45.40 Allergic rhinitis 568607 04 J30.1 [id number] Hudson christy MD OFFICE [address] [place] [id number] 8 09/01/2015 12:18:49 09/01/2015 13:08:13 Moderate persistent asthma 509043517 J45.40 [id number] Hudson christy MD OFFICE [address] [place] [id number] 8 03/01/2016 12:26:35 03/01/2016 13:39:33 Moderate persistent asthma 127874988 J45.40 Severe persistent asthma. She seems to have had a good response to the addition of Spiriva to her regimen with improvemen t in her FEV1 by 20%. She will continue on the Symbicort and Spiriva. [id number] Hudson christy MD OFFICE [address] [place] [id number] 8 08/30/2016 12:10:31 08/30/2016 13:11:38 Moderate persistent asthma 097637736 J45.40 Severe persistent asthma. She seems to have had a good response to the addition of Spiriva to her regimen with improvemen t in her FEV1 by 20%. She will continue on the Symbicort and Spiriva. Allergic rhinitis 709038 04 J30.1 [id number] [address] OFFICE [address] [address] 11/26/2016 12:08:00 11/26/2016 13:59:54 Asthma 270178685 J45.51 Patient is albin nunez an asthma exacerbati on, per patient's reported symptoms and physical exam findings. Patient given a Duoneb nebulized treatment in the office. Pulse oximetry was obtained. Patient was 97% while sitting. Patient prescribed a short burst of oral corticoste roids, prednisone 40 mg by mouth once daily for 5 days. Patient also prescribed a nebulizer, tubing, and albuterol nebules with instructio ns on use; 1 Duon e b nebulized treatment twice daily for the next 14 days or until her symptoms are better controlled . Patient to take 2 - 4 puffs of her albuterol MDI until she receives the nebulizer. Patient instructed to follow up in the office in one week. Patient instructed to call should her asthma symptoms increase or worsen prior to next week. Acute bronchitis 5820274 2 J20.9 Patient is most likely albin nunez an acute bronchitis as evidenced by her reported symptoms and physical exam findings. Patient to obtain a chest x-ray to rule out pneumonia. Once results are received they will be reviewed with patient. Patient prescribed a z-terry with instructio ns on use; 2 tablets by mouth once daily for one day, then 1 tablet by mouth once daily for 4 days. Patient instructed to follow up in the office in one week. Patient instructed to call should her asthma symptoms increase or worsen prior to next week. Allergic r hinitis caused by pollen 38415161 J30.1 Patient instructed to continue taking Dymista nasal spray as directed. Patient prescribed ipratropiu m bromide nasal spray 0.06% with instructio ns on use; 2 sprays per nostril twice daily until her secretions have decreased or resolved completely . Acute cystitis 19553711 N30.00 Patient reports that she was recently treated for an acute cystitis with Cipro for 3 days. Patient would like to obtain another urinalysis to determine if she still has the UTI. U/A performed and indicated normal bri, no signs of infection seen. Patient made aware. Acute recu rrent cystitis 762804464 N30.00 Patient reports that she was recently treated for an acute cystitis with Cipro for 3 days. Patient would like to obtain another urinalysis to determine if she still has the UTI. U/A performed and indicated normal bri, no signs of infection seen. Patient made aware. [id number] [address] OFFICE [address] [facility],[address] [id number] 12/03/2016 12:02:16 12/03/2016 14:46:44 Asthma 453636357 J45.51 PFTs obtained at today's visit show a decrease in her lung function. FEV1 was 35% which is decreased from her FEV1 of 44% obtain on 03/01/2016 . Patient prescribed montelukas t 10 mg by mouth once daily. Patient also ordered another nebulizer with mouthpiece from [facility]. Patient to call if she does not receive this nebulizer by tomorrow. Patient instructed to continue taking Symbicort 160/4.5 mcg and Spiri v a 1.25 mcg as directed. Patient to follow up in the office in 3 months. Impacted cerumen 6504543 6 H61.23 Patient's bilateral ear cerumen was removed without difficulty . Patient tolerated the procedure well. Patient did not feel that this procedure helped, at least immediatel y with her hearing loss. Patient to follow up with an job putter up and ticket preparer as soon as possible. Patient had a name of an job putter up and ticket preparer whom she wants to see. Allergic r hinitis caused by pollen 73006906 J30.1 Patient instructed to continue taking Dymista nasal spray as directed and ipratropiu m bromide nasal spray 0.06%; 2 sprays per nostril twice daily until her secretions have decreased or resolved completely . A mold allergen profile was obtained to screen for any mold allergy, given [place]. Patient to follow up in the office in [facility] 3 months. Hearing loss 09665629 H9 1.93 Patient reports bilateral hearing loss since April,. She underwent bilateral cerumen removal with no improvemen t of her symptoms. I suspect this is presbycusi s since the bilateral cerumen removal did not improve her hearing.Saul villagomez referred to an otol o gist. She has a name of an job putter up and ticket preparer whom she would like to see. Patient instructed to make an appointmen t with him to follow up on her recent hearing loss. [id number] Hudson christy MD OFFICE [address] [place] [address] 8 03/11/2017 13:24:22 03/11/2017 14:15:55 Moderate persistent asthma 826090396 J45.40 Back to baseline., significan t improvemen t in lung function. Will continue on present medication s [id number] Hudson christy MD OFFICE [address] [place] [address] 8 08/19/2017 13:08:22 08/19/2017 13:49:47 Moderate persistent asthma 920232660 J45.40 stable, will continue present meds [id number] Hudson christy MD OFFICE [address] [place] [address] 8 02/24/2018 12:33:08 02/24/2018 14:36:11 Moderate persistent asthma 715746010 J45.40 stable, will continue present meds Chronic sinusitis 121994 00 J32.9 [id number] Hudson christy MD OFFICE [address] [place] [address] 8 08/18/2018 12:04:03 08/18/2018 13:13:48 Moderate persistent asthma 649367593 J45.40 stable, will continue present meds [id number] Hudson christy MD OFFICE [address] [place] [address] 8 02/24/2019 12:01:55 02/24/2019 12:53:34 Moderate persistent asthma 074981614 J45.40 Pulmonary function tests are stable. Will continue on present medication s and return in 6 months. I have encouraged her to get back into exercising regularly. [id number] Hudson christy MD OFFICE [address] [place] [address] 8 08/25/2019 12:09:26 08/25/2019 12:56:54 Moderate persistent asthma 865706283 J45.40 The patient's asthma is doing extremely well. They're having no nocturnal awakenings and they're short acting beta agonist use during the day is limited. I will continue the patient on thier present medication s. [id number] Hudson christy MD OFFICE [address] [place] [address] 8 02/25/2020 11:58:52 02/25/2020 14:15:53 Asthma 413380698 J45.51 She appears to be at baseline. Pulmonary function tests are trending down but she appears to be stable. I am going to try her on Stiolto to see if she may have a better response. Administra tion of influenza vaccine 94922630 Z23 Allergy to mold 24762181 3 Z88.8 [id number] Hudson christy MD OFFICE [address] [place] [address] 8 08/16/2020 12:01:40 08/16/2020 13:39:39 Benign essential hypertension 1786809 I10 Moderate p ersistent asthma [id number] J45.40 Olivia has severe obstructiv e symptoms though she has managed to do quite well on her medication . Will continue. Allergic rhinitis 501471 04 J30.1 [id number] Hudson christy MD OFFICE [address] [place] [address] 8 02/16/2021 12:27:14 02/16/2021 14:13:48 Moderate persistent asthma [id number] J45.40 Pulmonary function tests show severe obstructio n though they have been stable over the years. I am going to try her on Breztri as an alternativ e. She does not use her Advair and Spiriva while she is on this. [id number] Hudson christy MD OFFICE [address] [place] [address] 8 08/17/2021 12:51:22 08/17/2021 13:40:05 Asthma [id number] J45.51 She appears to be at baseline. [id number] Hudson christy MD OFFICE [address] [place] [address] 8 02/15/2022 12:40:04 02/15/2022 14:20:50 Moderate persistent asthma [id number] J45.40 appears at baseline we will repeat Allergic rhinitis 772983 04 J30.9 [id number] Hudson christy MD OFFICE [address] [place] [address] 8 08/23/2022 12:28:38 08/23/2022 13:36:17 Moderate persistent asthma [id number] J45.40 pulmonary function tests show an FEV1 of about 19%. This is a significan t drop over the last 2 years. I am going to try placing her on some Breztri 2 puffs twice daily [id number] Hudson christy MD OFFICE [address] [place] [address] 8 02/21/2023 12:33:23 02/21/2023 14:35:31 Moderate persistent asthma [id number] J45.40 appears to be at her baseline. We will try switching to the higher dose of the Spiriva try and decrease her evening mucus. She will return in 6 months for follow-up [id number] Hudson christy MD OFFICE [address] [place] [address] 8 08/15/2023 12:27:55 08/15/2023 13:36:36 Moderate persistent asthma [id number] J45.40 She appears to have decline in her lung function. I am hoping this is related to an acute exacerbati on of her COPD. Going to give her a burst of steroids and an antibiotic and she is given a return in 5 days for follow-up. Acute bronchitis 5179630 2 J20.9 [id number] Hudson christy MD OFFICE [address] [place] [address] 8 08/22/2023 13:17:14 08/22/2023 13:37:39 Moderate persistent asthma [id number] J45.40 she appears to be much better her burst of steroids and antibiotic s. She will return in 3 months for follow-up. [id number] Hudson christy MD OFFICE [address] [place] [address] [place] [phone] 8 11/21/2023 13:04:10 11/21/2023 13:38:25 Severe chronic obstructive pulmonary disease [id number] J44.9 severe COPD. She seems to be doing quite well at the present time on her present medication s. I talked with her about the vaccine trial in the fall and she is interested [id number] Hudson christy MD OFFICE [address] [place] [address] 8 03/12/2024 13:17:12 03/12/2024 13:41:42 Severe chronic obstructive pulmonary disease [id number] J44.9 respirator y symptoms are stable. She will continue with her present regimen. Health Concerns Section Related Observation LastModified by Organization Detai ls LastModified Time None Recorded Concern Status LastModified by Organization Details LastModified Time None Recorded Advance Directives Directive None Recorded Payers Encounter Date Sequence Insurance Name Policy Number Policy Bui Covered Member ID Bui Member ID Guarantor Name 02/21/2023 1 [facility] (MEDICARE REPLACEMENT/A DVANTAGE - PPO) [id number] Olivia W Maserang [id number] Olivia Maserang 08/15/2023 1 [facility] (MEDICARE REPLACEMENT/A DVANTAGE - PPO) [id number] Olivia W Maserang [id number] Olivia Maserang 08/22/2023 1 [facility] (MEDICARE REPLACEMENT/A DVANTAGE - PPO) [id number] Olivia W Maserang [id number] Olivia Maserang 11/21/2023 1 [facility] (MEDICARE REPLACEMENT/A DVANTAGE - PPO) [id number] Olivia W Maserang [id number] Olivia Maserang 03/12/2024 1 [facility] (MEDICARE REPLACEMENT/A DVANTAGE - PPO) [id number] Olivia W Maserang [id number] Olivia Maserang Notes Date Note Type Note Provider Name and Address Organization Details Recorded Time 02/21/2023 text/html ACT TestReported bypatient.Asthma Control TestIn the past 4 weeks, how much time did your asthma keep you from getting as much done as you would like? (4); How often have you had shortness of breath4; How often did your asthma symptoms wake you up5; How often did you use your rescue inhaler3; How would you rate your asthma control4; total score 20 Lucy comes in for follow-up of her moderate persistent asthma. She has seems to be at her baseline. She finds she has more mucus when she tries to go to bed at night in wonders if there is something else she could take. She is taking Spiriva 1.255 mcg per puff 2 puffs once daily and her Wixela.she has not had an exacerbation. MD [address], [place], [address], [facility], 02/21/2023 13:28:59 08/15/2023 text/html Olivia comes in for follow-up of her severe COPD. She has been taking all her medications as directed.She has been finding that recently she has been getting more short of breath. She had an episode last week where she really got short of breath and found that her rescue inhaler be used and it helped quite a bit. She denies fevers or chills but she has had some purulent secretions recently. She is up-to-date on her vaccinations. MD [address], [place], [address], [facility], 08/15/2023 14:19:11 08/22/2023 text/html Olivia returns f or follow-up of her severe COPD. she was placed on a burst of prednisone after her last visit and she is conssiderably better with essentially no wheezing at the present time. He denies any purulent secretions. MD [address], [place], [address], [facility], 08/22/2023 13:54:56 11/21/2023 text/html Lucy comes in fo r follow-up of her severe COPD. She is doing relatively well taking her fluticasone salmeterol inhaler as well as her Spiriva 2.5 mcg per puff 2 puffs once a day. Continues to feel like she has lots of mucus and that the mucus is difficult to clear. She has not ever tried Mucinex. MD [address], [place], [address], [facility], 11/21/2023 13:52:29 03/12/2024 text/html Lucy comes in fo r follow-up of her severe COPD. She continues to do well on Advair 100/50 and Spiriva 2.5 mcg. she has had no flares since her last visit. There is been no change in her sputum character. She continues to be active. She has been fully vaccinated. MD [address], [place], [address], [facility], 03/12/2024 14:18:27 OBGyn Episode No OBEpisode recorded.
--- OUTSIDE RECORDS SUMMARY | 2024-06-22 11:06 | XMS_ITS | Encounter Summary ---
Author Organization [facility] Address 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
--- OUTSIDE RECORDS SUMMARY | 2024-06-22 11:06 | XMS_ITS | Clinical Summary ---
Author Organization [facility] Address [address] [facility] [place] [address] Care Team Providers Care Benefits Consultant Name Role Phone Elieser Patel MD Primary Care Provider Allergies Active Allergy Reactions Criticality Noted Date Comments Cephalosporins Hives Medium 01/21/2009 Cefadroxil Hives Medium 02/05/2012 Penicillins Hives Medium 01/21/2009 [place] Hives Medium 09/06/2023 Medications calcium carbonate-vitamin D3 [...] 06/10/2024 Assessment & Plan (06/10/2024 1:48 PM CITY DISTRIBUTION CLERK): PT. AV block, 1st degree 09/06/2023 Near syncope 09/06/2023 Dizzy spells 08/08/2023 Assessment & Plan (06/10/2024 1:48 PM CITY DISTRIBUTION CLERK): Neurologic and cardiologic workups unremarkable. She feels well. Has follow up with Dr. Wilman davila. Assessment & Plan (01/09/2024 1:01 PM CDT): Unclear etiology. Cardiac workup has thus far been unremarkable. [facility]. Urinary incontinence 06/28/2022 Assessment [...] BID. Assessment & Plan (06/28/2022 12:41 PM CITY DISTRIBUTION CLERK): Increase metoprolol to 75 mg BID. Had negative stress test within last year, so low likelihood of having coronary ischemia. Assessment & Plan (02/13/2022 12:12 PM CDT): Recommend increasing metoprolol to 75 mg BID. Assessment & Plan (10/11/2021 9:22 PM CDT): Holter. Frequent falls 10/11/2021 Assessment & Plan (10/11/2021 9:22 PM CDT): PT referral. Sebaceous cyst 06/13/2021 Assessment & Plan (06/13/2021 12:24 PM CITY DISTRIBUTION CLERK): She will get an I&D at urgent care. Hyperlipidemia 06/30/2020 Assessment & Plan (06/28/2022 12:39 PM CITY DISTRIBUTION CLERK): LDL at goal without need for statin. Assessment & Plan (02/13/2022 12:10 PM CDT): At goal on current therapy. Assessment & Plan (10/11/2021 9:20 PM CDT): LDL in good range without need for statin. Assessment & Plan (06/13/2021 12:23 PM CITY DISTRIBUTION CLERK): LDL at goal without need for statin at this time. Assessment & Plan (02/02/2021 5:32 PM CDT): At goal on current therapy. ASCVD (arteriosclerotic cardiovascular disease) 06/30/2020 Osteoarthritis 06/30/2020 Frequent UTI 06/30/2020 Assessment & Plan (06/10/2024 2:33 PM CITY DISTRIBUTION CLERK): Continue pelvic floor PT. Allergic rhinitis 11/26/2017 Moderate persistent asthma 11/26/2017 Assessment & Plan (02/02/2021 5:32 PM CDT): Continue current therapy. F/u with allergy. Disorder of lung 08/22/2015 Lung mass 08/08/2015 Overweight with body mass index (BMI) 25.0-29.9 08/01/2015 Palpitations 08/01/2015 Shortness of breath 01/31/2015 Assessment & Plan (06/13/2021 12:24 PM CITY DISTRIBUTION CLERK): Will proceed with stress echo. Fibroids 07/16/2014 Pain of foot 08/05/2013 Diastolic heart failure 07/16/2013 Hypertension, essential 03/24/2013 Assessment & Plan (06/10/2024 2:33 PM CITY DISTRIBUTION CLERK): At goal on current therapy. Assessment & Plan (01/09/2024 1:01 PM CDT): BP in reasonable range on current regimen. Assessment & Plan (08/08/2023 12:33 PM CDT): At goal on current therapy. Assessment & Plan (03/07/2023 12:40 PM CDT): At goal on current therapy. Assessment & Plan (10/31/2022 11:45 AM CDT): At goal on current therapy. Assessment & Plan (06/28/2022 12:41 PM CITY DISTRIBUTION CLERK): At goal on current therapy. 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 Will proceed with RUE arterial duplex; may need MRA depending on findings. Type 1 diabetes mellitus wit hout complication ([facility]) 06/30/2020 02/02/2021 Encounters Date Type Department Care Team Description 06/16/2024 Telephone [facility] [address] [place] [address] 8th [place] [address] [place] [address] Karmen Stovall MD 06/12/2024 Telephone [facility] [address] [place] [phone] Elieser Patel MD Test Results 06/12/2024 Orders Only [facility] [address] [place] [phone] Elieser Patel MD 06/10/2024 1:30 PM CITY DISTRIBUTION CLERK Office Visit [facility] [address] [address] Elieser Patel MD Dizzy spells (Primary Dx); Hypertension, essential; Neck pain; Vitamin D deficiency; Hyperlipidemia, unspecified hyperlipidemia type; Frequent UTI 04/08/2024 Telephone [facility] Neu[facility] [address] [place] [address] [place] [phone] Edgar Monory MD 04/06/2024 Telephone [facility] [address] [place] [address] 8th [place] [address] [place] [address] Karmen Stovall MD from Last 3 Months Immunizations Immunization Administration Dates Next Due Moderna SARS-CoV-2 Monovalent Vaccination (12+ Y RS) 05/08/2020 Surgical History Surgery Date Site/Laterality Comments WI UTERINE SUSPENSION W/WO SHORTENING LIGAMENTS SPX Surgical Uterine Suspension - uterine and bladder suspension (Added by TW Conv) EYE SURGERY cataract surgery Medical History Medical History Date Comments History of recurrent pneumonia H istory of pneumonia - (Added by TW Conv) Personal history of other ma lignant neoplasm of skin History of malignant neoplas m of skin - (Added by TW Conv) Personal history of diseases of the blood and blood-forming organs and certain disorders involving the immune mechanism History of anemia - (Added b y TW Conv) Closed fracture of carpal bone W rist fracture - (Added by TW Conv) Family History Medical History Relation Name Comments Heart disease Father Family history of cardiac disorder - (Added by TW Conv) Arthritis Mother Family history of arthritis - (Added by TW Conv) Lung disease Mother Family history of lung disease - (Added by TW Conv) Osteoporosis Mother Family history of osteoporosis - (Added by Conv) Relation Name Status Comments Father Mother Social History Tobacco Use Types Packs/Day Years [...] on file Legal Sex Female 9:20 PM CITY DISTRIBUTION CLERK Gender Identity Not on file Sexual Orientation Not on file Obstetrics History Para Term AB IAB SAB Ectopic Multiple Livin g Live Births 3 1 1 2 2 1 1 Date Outcome GA Total Labor Labor/2nd/3rd Weight Sex Type Anes PTL Tita A1 A5 Name Clin SAB SAB 1961 Term F Vag-S pont Living Last Filed Vital Signs Vital Sign Reading Time Taken Comments Blood Pressure 153/84 06/10/2024 1:18 PM CITY DISTRIBUTION CLERK Pulse 55 06/10/2024 1:18 PM CITY DISTRIBUTION CLERK Temperature 36.8 C (98.2 F) 11/03/2019 10:41 AM CDT Respiratory Rate 14 11/03/2019 10:41 AM CDT Oxygen Saturation 95% 02/17/2024 1:13 PM CDT Inhaled Oxygen Concentration - - Weight 59.1 kg (130 lb 3.2 oz) 06/10/2024 1:18 P M CITY DISTRIBUTION CLERK Height 157.5 cm (5' 2 ) 06/10/2024 1:18 PM CITY DISTRIBUTION CLERK Body Mass Index 23.81 06/10/2024 1:18 PM CITY DISTRIBUTION CLERK Plan of Treatment Health Maintenance Due Date Last Done Comments DTaP/Tdap/Td Vaccine (1 - Tdap) [birth year]02/1951 Hepatitis B Screening 08/02/1958 Pneumococcal vaccine 65+ (2 of 2 - PPSV23 or PCV20) 02/13/2016 12/19/2015 Depression Screening 10/11/2022 10/11/2021, 02/03/20 21 Fall Risk Assessment 10/11/2022 10/11/2021 Well Visit 65+ 10/11/2022 10/11/2021, 02/04, 12/02/2018, Additional history exists Osteoporosis Screening-Bone Density Scan 08/23/2023 08/22/2021, 08/22/2021, 08/05/2020, Additional history exists Covid-19 Vaccine (2023-2 5 season) 2024 11/17/2021, 03/01/2021, 06/28/2020, Additional history exists Breast Cancer Screening-Mammogram 09/11/2024 09/12/2023, 08/21/2022, 07/06/2021, Additional history exists Zoster Vaccine Completed 05/20/2019, 10/05, 04/06/2015 Influenza Vaccine Completed 02/26/2024, , 02/14/2021, Additional history exists Procedures Procedure Name Priority Date/Time Associated Diagnosis Comments SCAN - LABS 06/12/2024 10:30 AM CITY DISTRIBUTION CLERK SPECIMEN STATUS REPORT Routine 06/11/2024 1:00 PM CITY DISTRIBUTION CLERK LIPID PANEL Routine 06/11/2024 1:00 PM CITY DISTRIBUTION CLERK Hyperlipidemia, unspecified hyperlipidemia type VITAMIN D 25 HYDROXY Routine 06/11/2024 1:00 PM CITY DISTRIBUTION CLERK Vitamin D deficiency THYROID FUNCTION CASCADE Routine 06/11/2024 1:00 PM CITY DISTRIBUTION CLERK Hypertension, essential CBC WITH AUTO DIFFERENTIAL Routine 06/11/2024 1:00 PM CITY DISTRIBUTION CLERK Hypertension, essential COMPREHENSIVE METABOLIC PANEL Routine 06/11/2024 1:00 PM CITY DISTRIBUTION CLERK Hypertension, essential SCREENING MAMMOGRAM BILATERAL W HARINDER Schedule Routine, Read Routine (OP Routine) 09/12/2023 12:38 PM CDT Screening mammogram, encounter for from Last 3 Months or Most Recently Relevant to Health Maintenance Results * SCAN - LABS (06/12/2024 10:30 AM CITY DISTRIBUTION CLERK) Elieser Patel MD Final R esult * Specimen Status Report (06/11/2024 1:00 PM CITY DISTRIBUTION CLERK) Specimen Status Report Comment [facility] - 01 Comment: Unable To Void Unable To Void Patient unable to void. Urine to be collected at a later date. 06/11/2024 1:00 PM CITY DISTRIBUTION CLERK 06/11/2024 Narrative [facility] - 06/12/2024 11:10 AM CITY DISTRIBUTION CLERK Performed at: [facility] [id number] Professor Of Forestry: Stevenson Gonzales PhD, Phone: [phone] Elieser Patel MD LAB BLOOD ORDERABLES Fi nal Result [facility] - 01 * Thyroid Function [place] (06/11/2024 1:00 PM CITY DISTRIBUTION CLERK) TSH 3.060 0.450 - 4.500 uIU/mL [facility] - 01 Comment: No apparent thyroid disorder. Additional testing not indicated. In rare instances, Secondary Hypothyroidism as well as Subclinical Hypothyroidism have been reported in some patients with normal TSH values. Blood 06/11/2024 1:00 PM CITY DISTRIBUTION CLERK 06/11/2024 Narrative [facility] - 06/12/2024 11:10 AM CITY DISTRIBUTION CLERK Performed at: 01 - [facility] [address], [place], [place] [id number] Professor Of Forestry: Stevenson Gonzales PhD, Phone: [phone] us Elieser Patel MD LAB BLOOD ORDERABLES Fi nal Result [facility] - 01 * CBC with auto differential (06/11/2024 1:00 PM CITY DISTRIBUTION CLERK) [facility] WBC 5.0 3.4 - 10.8 x10E3/uL [...] [facility] - 01 Blood 06/11/2024 1:00 PM CITY DISTRIBUTION CLERK 06/11/2024 Narrative [facility] - 06/12/2024 11:10 AM CITY DISTRIBUTION CLERK Performed at: [address] [id number] Professor Of Forestry: Stevenson Gonzales PhD, Phone: [phone] Specimen Comment: A courtesy copy of this report has been sent to [phone] Elieser Patel MD LAB BLOOD ORDERABLES Fi nal Result Performing Organization Address City/[facility]/ZIP Co de Phone Number [facility] - * Vitamin D 25 hydroxy (06/11/2024 1:00 PM CITY DISTRIBUTION CLERK) Pathologist [facility] Vitamin D, 25-Hydroxy 84.3 30.0 - 100.0 ng/mL [facility] - 01 Comment: Vitamin D deficiency has been defined by the [place] of [employer] and an Endocrine Society practice guideline as a level of serum 25-OH vitamin D less than 20 ng/mL (1,2). The Endocrine Society went on to further define vitamin D insufficiency as a level between 21 and 29 ng/mL (2). 1. IOM ([place] of [employer]). 2010. Dietary reference intakes for calcium and D. [place]: The National Academies Press. 2. Steffany MF, Alexis CHAVIS, Sanjay DRISCOLL, et al. Evaluation, treatment, and prevention of vitamin D deficiency: an Endocrine Society clinical practice guideline. JCEM. 2010; 96(7):1911-30. Blood 06/11/2024 1:00 PM CITY DISTRIBUTION CLERK 06/11/2024 Narrative [facility] - 06/12/2024 11:10 AM CITY DISTRIBUTION CLERK Performed at: [facility] [id number] Professor Of Forestry: Stevenson Gonzales PhD, Phone: [phone] Elieser Patel MD LAB BLOOD ORDERABLES Fi nal Result Performing Organization Address City/[facility]/ZIP Co de Phone Number [facility] - * (ABNORMAL) Lipid panel (06/11/2024 1:00 PM CITY DISTRIBUTION CLERK) Cholesterol 199 100 - 199 mg/dL [facility] - 01 Triglycerides 61 0 - 149 mg/dL [facility] - 01 HDL Cholesterol 83 >39 mg/dL [facility] - 01 VLDL 11 5 - 40 mg/dL [facility] - 01 LDL, calculated 105(H) 0 - 99 mg/dL [facility] - 01 Blood 06/11/2024 1:00 PM CITY DISTRIBUTION CLERK 06/11/2024 Narrative [facility] - 06/12/2024 11:10 AM CITY DISTRIBUTION CLERK Performed at: - [facility] [id number] Professor Of Forestry: Stevenson Gonzales PhD, Phone: [phone] Elieser Patel MD LAB BLOOD ORDERABLES Fi nal Result [facility] - 01 * (ABNORMAL) Comprehensive metabolic panel (06/11/2024 1:00 PM CITY DISTRIBUTION CLERK) Glucose 103(H) 70 - 99 mg/dL [facility] [...] [facility] - 01 Blood 06/11/2024 1:00 PM CITY DISTRIBUTION CLERK 06/11/2024 Narrative [facility] - 06/12/2024 11:10 AM CITY DISTRIBUTION CLERK Performed at: 01 - [address] [id number] Professor Of Forestry: Stevenson Gonzales PhD, Phone: [phone] us Elieser Patel MD LAB BLOOD ORDERABLES Fi nal Result [facility] - 01 * Screening Mammogram Bilateral W Harinder (09/12/2023 12:38 PM CDT) Anatomical Region Laterality Modality Breast Bilateral Mammography Narrative 09/13/2023 2:02 PM CDT Mammogram Technique: Bilateral Digital Breast Tomosynthesis, Bilateral C-view 2D Screening mammogram. Views obtained: bilateral craniocaudal and bilateral mediolateral oblique. Computer Aided Detection was performed. Mammogram Findings: The present examination has been compared to prior imaging studies performed at [facility] on 03/03/2020, 07/06/2021 and 08/21/2022. There are [...] compared to prior imaging studies performed at [facility] on 03/03/2020, 07/06/2021 and 08/21/2022. There are [...] Relevant to Health Maintenance Insurance MEDICARE SOLUTIONS Care Teams Benefits Consultant Relationship Specialty Start Date End Date Elieser Patel MD [id number] [address] PCP - General Endocrinology Diabetes & Metabolism 02/02/21
--- OUTSIDE RECORDS SUMMARY | 2024-06-22 11:06 | XMS_ITS | Encounter Summary ---
Author Organization [facility] Address 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
--- OUTSIDE RECORDS SUMMARY | 2024-06-22 11:06 | XMS_ITS | Clinical Summary ---
Author Organization [facility] Address [address] [place] [id number] Care Team Providers Care Staff Toxicologist Name Role Phone Elieser Patel MD Primary Care Provider [phone] Allergies Active Allergy Reactions Criticality Noted Date Comments Cefadroxil Hives 02/12/2019 Penicillins Hives 02/12/2019 Medications losartan 50 MG tablet Take 1 tablet (50 mg total) by mouth daily. Active hydrochlorothia zide 25 MG tablet Take 1 tablet (25 mg total) by mouth every morning. Active metoprolol tartrate 50 MG tablet Take 1.5 tablets (75 mg total) by mouth 2 (two) times daily. Active tiotropium [address] 1 capsule (18 mcg total) into inhaler and inhale daily. Active aspirin EC (ECOTRIN) 81 MG tablet Take 1 tablet (81 mg total) by mouth daily. Active albuterol sulfate HFA 108 (90 Base) MCG/ACT inhaler Inhale 2 puffs into the lungs every 6 (six) hours as needed for Wheezing. Active WIXELA INHUB 100-50 MCG/ACT inhaler INHALE 2 PUFFS EVERY DAY BY INHALATION ROUTE FOR 90 DAYS. Active Immunizations Name Administration Dates Next Due MODERNA COVID-19 (12+) MRNA, LNP-S, PF, 100 MCG/ 0.5 ML DOSE 06/28/2020,05/31/2020,05/08/2020 Family History Medical History Relation Comments None Father None Mother Relation Status Comments Father Mother Social History Tobacco Use Types Packs/Day Years Used Date Smoking Tobacco: Never Passive Smoke Exposure: Never Smokeless Tobacco: Never Tobacco Cessation:Counseling Given: Not Answered Alcohol Use Standard Drinks/Week Comments Yes 0 (1 standard drink = 0.6 oz pur e alcohol) SOCIALLY Comments No Sex and Gender Information Value Date Recorded Sex Assigned at Not on file Legal Sex Female 3:23 PM CDT Gender Identity Not on file Sexual Orientation Not on file Last Filed Vital Signs Vital Sign Reading Time Taken Comments Blood Pressure 117/61 12/07/2023 4:55 PM CDT Pulse 60 12/07/2023 4:55 PM CDT Temperature 37.1 C (98.7 F) 12/07/2023 4:55 PM CDT Respiratory Rate 18 12/07/2023 4:55 PM CDT Oxygen Saturation 100% 12/07/2023 4:55 PM CDT Inhaled Oxygen Concentration - - Weight 59 kg (130 lb) 12/07/2023 4:55 PM CDT Height 157.5 cm (5' 2 ) 12/07/2023 4:55 PM CDT Body Mass Index 23.78 12/07/2023 4:55 PM CDT Plan of Treatment Health Maintenance Due Date Last Done Comments DTaP, Tdap and Td Vaccines (1 - Tdap) 08/02/1959 Annual Medicare Wellness Visit 08/02/2004 COVID-19 Vaccine ( season) 2024 11/17/2021, 06/28/2020, 05/31/2020, Additional history exists Influenza Adult (#1) 2024 02/14/2022, 02/14/2021, 02/18/2020, Additional history exists Zoster Vaccines Completed 05/20/2019, 10/05, 04/06/2015 Dexa Scan (General) Completed 08/22/2021, 08/22/2021, 08/05/2020 Pneumococcal Vaccine: 65+ Years Completed 01/23/2022, 12/19/2015 RSV Immunization or 60+ Years Completed 04/08/2023 Meningococcal B Vaccine Aged Out No l onger eligible based on patient's age to complete this topic Meningococcal Vaccine Aged Out No luly marci eligible based on patient's age to complete this topic RSV Immunizations Under 20 Months Aged Out No longer eligible based on patient's age to complete this topic Insurance [facility] Care Teams Staff Toxicologist Relationship Specialty Start Date End Date Elieser Patel MD [address] [facility] [address], [place] [address] PCP - General INTERNAL MEDICINE 09/11/22
--- OUTSIDE RECORDS SUMMARY | 2024-06-22 11:06 | XMS_ITS | Clinical Summary ---
Author Organization [facility] Address [address] [place] [address] Phone Care Team Providers Care Health Professional Name Role Phone Larry Alvarado MD Primary Care Provider [phone] Allergies Active Allergy Reactions Criticality Noted Date Comments Cephalosporins Hives,Unknown High 01/21/2009 Penicillins Hives,Unknown High 01/21/2009 Medications losartan (COZAAR) 50 mg tablet losartan 50 mg tablet 1 Active metoprolol tartrate (LOPRESSOR) 50 mg tablet metoprolol tartrate 50 mg tablet 0 Active montelukast (SINGULAIR) 10 mg tablet montelukast 10 mg tablet 8 Active tiotropium (SPIRIVA RESPIMAT) 1.25 mcg/actuation Mist Spiriva Respimat 1.25 mcg/actuation solution for inhalation 8 Active fluticasone propion-salmete roL (ADVAIR DISKUS,WIXELA INHUB) 100-50 mcg/dose disk inhaler Advair Diskus 100 mcg-50 mcg/dose powder for inhalation Active aspirin (ECOTRIN EC) 81 mg Tablet, Delayed Release (E.C.) Take 81 mg by mouth. Active calcium carbonate-vitam in D3 (CALTRATE 600 + D) 600 mg(1,500mg) -800 unit Tablet 2 times daily. Activ e glucosamine-cho ndroitin (COSAFLEX) 500-400 mg Capsule daily. Active melatonin 3 mg Tablet QD Active azelastine-flut icasone 137-50 mcg/spray [place], Non-Aerosol azelastine-fluti casone 137 mcg-50 mcg/spray nasal spray Active cholecalciferol , vitamin D3, 1,000 unit 2,000 Units. Active metoprolol tartrate (LOPRESSOR) 25 mg tablet Take 25 mg by mouth 2 times daily. Active hydroCHLOROthia zide 25 mg tablet Take 25 mg by mouth daily. 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 Gender Identity Not on file Sexual Orientation Not on file Last Filed Vital Signs Vital Sign Reading Time Taken Comments Blood Pressure 110/72 08/22/2021 12:00 PM CDT Pulse - - Temperature - - Respiratory Rate - - Oxygen Saturation - - Inhaled Oxygen Concentration - - Weight 61.8 kg (136 lb 3.2 oz) 08/22/2021 12:00 PM CDT Height 150.9 cm (4' 11.4 ) 08/22/2021 12:00 PM C DT Body Mass Index 27.14 08/22/2021 12:00 PM CDT Plan of Treatment Health Maintenance Due Date Last Done Comments DTAP/TDAP/TD VACCINES (1 - Tdap) 08/02/1959 ZOSTER VACCINE (1 of 2) 08/02/1989 RSV VACCINE (60+ or ) (1 - 1-dose 75+ series) 08/02/2014 PNEUMOCOCCAL VACCINE 65+ YEA RS (2 of 2 - PPSV23) 02/13/2016 12/19/2015 INFLUENZA VACCINE (#1) 2023 , 02/18/2020, 01/13/2019, Additional history exists COVID-19 Vaccine ( - 2023-2 5 season) 2024 06/28/2020, 05/31/2020, 05/08/2020 Colorectal Cancer Screening Discontinued FIT/FOBT Q 1 year Discontinued 08/05/2020 OSTEOPOROSIS SCREENING Completed 08/22/2021, 2020 COLORECTAL SCREENING Discontinued FIT-DNA Q 3 years Discontinued Flex Sig/CT Colonography Q 5 years Discontinued Procedures Procedure Name Priority Date/Time Associated Diagnosis Comments XR DEXA BONE DENSITY AXIAL 1 OR MORE SITES Routine 08/22/2021 11:56 AM CDT Osteoporosis, unspecified osteoporosis type, unspecified pathological fracture presence POC OCCULT BLOOD, IMMUNO, QUAL, STOOL Routine 08/05/2020 11:37 AM CDT Encounter for screening for malignant neoplasm of rectum from Last 3 Months or Most Recently Relevant to Health Maintenance Results * XR DEXA BONE DENSITY AXIAL 1 OR MORE SITES (08/22/2021 11:56 AM CDT) Anatomical Region Laterality Modality Computed Radiogr aphy Impressions 08/22/2021 12:45 PM CDT : Worst T score is -2.2. However, her FRAX is positive with a 4.3% risk of hip fracture in the next 10 years. Her bone density is slightly decreased from last year. She had bone density consult but did not start treatment. Would strongly encourage it. Repeat the bone density in 1 year. Melvin Hunter MD DIAGNOSTIC IMAGING ORDERABLE S Final Result * POC OCCULT BLOOD, IMMUNO, QUAL, STOOL (08/05/2020 11:37 AM CDT) OCCULT BLOOD, IMMUNOASSAY POC Negative Negative [facility] [address] INTERNAL KIT QC Pass Pass [facility] [employer] KIT LOT NUMBER POC [id number] [facility] [employer] [address] KIT EXPIRATION DATE POC [id number] [facility] [employer] [address] Stool STOOL SPECIMEN / Unknown 08/05/2020 11:37 AM CDT Keyonna Martinez MD POINT OF CARE TESTING Parris orozco Result [facility] [address] [address] CLIA# [id number] [address] [facility] [address] [place] [address] from Last 3 Months or Most Recently Relevant to Health Maintenance [facility] [id number] Care Teams Health Professional Relationship Specialty Start Date End Date Larry Alvarado MD [facility] [address] [address] PCP - General 10/21/06
--- OUTSIDE RECORDS SUMMARY | 2024-06-22 11:06 | XMS_ITS | Encounter Summary ---
Author Organization [facility] Address [address] [place] [address] Phone Care Team Providers Care Campus Chaplain Name Role Phone Elieser Patel MD Primary Care Provider Encounter Details Date Type Department Care Team (Late st Contact Info) Description 06/16/2024 Telephone [facility] Cardiology [address] [facility] 8th [place] [address] [place] [address] Karmen Stovall MD [address] [facility] [address] [place] [address] Social History Tobacco Use Types Packs/Day Years Used Date Smoking Tobacco: Former Cigarettes Q uit: 1972 Smokeless Tobacco: Never Comments:at age 31 Alcohol Use Standard Drinks/Week [...] on file 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 Stovall. 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 If patient prefers in patient it will be a few months before Ican get her in. 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 Unfortunately, pt has a conflict and would not be able to come to the office at that time. Pt req a return ana to discuss other rescheduling options. 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
--- OUTSIDE RECORDS SUMMARY | 2024-06-22 11:06 | XMS_ITS | Encounter Summary ---
Author Organization [facility] Address 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
== END 2024-06-22 11:09 | disposition home or self-care (01) ==
PROVIDERS: Emergency Provider Emergency Medicine
DX: R07.89 Other chest pain (principal); Z20.822 Contact with and (suspected) exposure to COVID-19; I10 Essential (primary) hypertension; J45.909 Unspecified asthma, uncomplicated; I44.0 Atrioventricular block, first degree; I44.7 Left bundle-branch block, unspecified; I49.3 Ventricular premature depolarization
CPT/HCPCS: 36415; 71045; 80053; 82803; 83690; 83880; 84484; 85025; 85380; 85610; 85730; 87637; 93005; 99284; A9270